=== PATIENT | female | born 1950 | race Caucasian/White ===

== ENCOUNTER 2019-06-14 06:05 | Inpatient (IN) ==
[~2019-06-14 06:05] MED LIST: Aspirin 81 MG TAB.CHEW PO ONE; Dextrose 50 % in Water (Vial) 30 ML, Sodium Bicarbonate 20 MEQ, Lidocaine 1% 5 ML, Insu... TH ONE; Dextrose 50 % in Water (Vial) 30 ML, Sodium Bicarbonate 20 MEQ, Potassium Chloride 15 M... TH ONE; Heparin 15,000 UNIT in 0.9 % Sodium Chloride 500 ML IV ONE; Insulin Human Regular 100 UNIT in 0.9 % Sodium Chloride 100 ML IV PRN; Norepinephrine 4 MG in 0.9 % Sodium Chloride 250 ML IVC PRN
[2019-06-14] MEDS ORDERED: Nitroglycerin 25 MG/250 ML INFUS..BTL IVC ONE (06:13)
[2019-06-14] MEDS ORDERED: NiCARdipine 2.5 MG/10 ML Syringe IVPB ONE (06:13)
[2019-06-14] MEDS ORDERED: *HR* FentaNYL (PF) 1,000 MCG/20 ML VIAL ONE ×2 (06:15→06:25)
[2019-06-14] MEDS ORDERED: *HR* Midazolam HCl 5 MG/5 ML VIAL IVP ONE ×6 (06:15→18:43)
[2019-06-14] MEDS ORDERED: Protamine Sulfate 250 MG/25 ML VIAL IVP ONE ×2 (06:16→06:22)
[2019-06-14] MEDS ORDERED: *HR* Etomidate 20 MG/10 ML AMPUL IVP ONE (06:16)
[2019-06-14] MEDS ORDERED: Tranexamic Acid 1,000 MG/10 ML VIAL ONE ×2 (06:16→09:50)
[2019-06-14] MEDS ORDERED: Famotidine 20 MG/2 ML VIAL ONE (06:16)
[2019-06-14] MEDS ORDERED: *HR* PHENYLEPHRINE 1,000 MCG/10 ML SYRINGE IVP ONE ×3 (06:16→16:42)
[2019-06-14] MEDS ORDERED: Calcium Gluconate 1,000 MG/10 ML VIAL ONE ×3 (06:16→12:26)
[2019-06-14] MEDS ORDERED: *HR* Rocuronium Bromide 50 MG/5 ML VIAL ONE ×4 (06:16→16:42)
[2019-06-14] MEDS ORDERED: EPHEDrine 50 MG/ML VIAL ONE (06:26)
[2019-06-14] MEDS ORDERED: Clindamycin 900 MG/50 ML 900 MG/50 ML IV.SOLN IVPB ONE (06:38)
[2019-06-14] MEDS ORDERED: Albuterol 2.5 MG/3 ML NEBULIZER IH PRN (06:39)
[2019-06-14] MEDS: Ringers Solution, Lactated 1,000 ML IVC SCH ×2 (08:20→22:27)
[2019-06-14 08:47] LABS: ABG Base Excess -1 mEq/L (-2 to 3); ABG Chloride 108 mEq/L (98-107); ABG Glucose 114 mg/dL (60-95); ABG HCO3 25 mEq/L (21-27); ABG Ionized Calcium 1.25 mmol/L (1.15-1.35); ABG Oxygen Saturation 100 % (95-98); ABG PCO2 43 mmHg (35-45); ABG PH 7.37 pH Units (7.32-7.45); ABG PO2 334 mmHg (85-104); ABG TCO2 26 mEq/L (20-26)
[2019-06-14] MEDS ORDERED: Esmolol 100 MG/10 ML VIAL IVP ONE (08:54)
[2019-06-14] MEDS ORDERED: Dextrose 50 % in Water (Vial) 30 ML, Sodium Bicarbonate 20 MEQ, Lidocaine 1% 5 ML, Insu... TH ONE (09:00)
[2019-06-14 09:40] LABS: ABG Base Excess -2 mEq/L (-2 to 3); ABG Chloride 107 mEq/L (98-107); ABG Glucose 144 mg/dL (60-95); ABG HCO3 23 mEq/L (21-27); ABG Ionized Calcium 1.23 mmol/L (1.15-1.35); ABG Oxygen Saturation 100 % (95-98); ABG PCO2 40 mmHg (35-45); ABG PH 7.38 pH Units (7.32-7.45); ABG PO2 186 mmHg (85-104); ABG TCO2 25 mEq/L (20-26)
[2019-06-14 10:17] LABS: ABG Base Excess -2 mEq/L (-2 to 3); ABG Chloride 103 mEq/L (98-107); ABG Glucose 162 mg/dL (60-95); ABG HCO3 23 mEq/L (21-27); ABG Ionized Calcium 0.99 mmol/L (1.15-1.35); ABG Oxygen Saturation 100 % (95-98); ABG PCO2 34 mmHg (35-45); ABG PH 7.43 pH Units (7.32-7.45); ABG PO2 527 mmHg (85-104); ABG TCO2 24 mEq/L (20-26)
[2019-06-14 10:57] LABS: ABG Base Excess 1 mEq/L (-2 to 3); ABG Chloride 102 mEq/L (98-107); ABG Glucose 157 mg/dL (60-95); ABG HCO3 25 mEq/L (21-27); ABG Ionized Calcium 0.99 mmol/L (1.15-1.35); ABG Oxygen Saturation 100 % (95-98); ABG PCO2 37 mmHg (35-45); ABG PH 7.44 pH Units (7.32-7.45); ABG PO2 510 mmHg (85-104); ABG TCO2 26 mEq/L (20-26)
[2019-06-14 11:20] LABS: ABG Base Excess -3 mEq/L (-2 to 3); ABG Chloride 103 mEq/L (98-107); ABG Glucose 111 mg/dL (60-95); ABG HCO3 22 mEq/L (21-27); ABG Ionized Calcium 0.92 mmol/L (1.15-1.35); ABG Oxygen Saturation 100 % (95-98); ABG PCO2 35 mmHg (35-45); ABG PO2 500 mmHg (85-104); ABG TCO2 23 mEq/L (20-26)
[2019-06-14 11:54] LABS: ABG Base Excess -5 mEq/L (-2 to 3); ABG Chloride 104 mEq/L (98-107); ABG Glucose 74 mg/dL (60-95); ABG HCO3 21 mEq/L (21-27); ABG Ionized Calcium 1.42 mmol/L (1.15-1.35); ABG Oxygen Saturation 95 % (95-98); ABG PCO2 42 mmHg (35-45); ABG PO2 83 mmHg (85-104); ABG TCO2 22 mEq/L (20-26)
[2019-06-14] MEDS ORDERED: *HR* EPINEPHrine 1 MG/10 ML SYRINGE ONE ×2 (11:57→12:56)
[2019-06-14] MEDS ORDERED: *HR* Amiodarone 150 MG/3 ML VIAL IVPB ONE ×2 (12:03→14:24)
[2019-06-14] MEDS ORDERED: Lidocaine 2% Syringe 100 MG/5 ML ONE (12:03)
[2019-06-14] MEDS ORDERED: Amiodarone Premix 360 MG/200 ML BAG IVC ONE ×2 (12:03→14:38)
[2019-06-14 12:19] LABS: ABG Base Excess -8 mEq/L (-2 to 3); ABG Chloride 107 mEq/L (98-107); ABG Glucose 72 mg/dL (60-95); ABG HCO3 19 mEq/L (21-27); ABG Ionized Calcium 1.19 mmol/L (1.15-1.35); ABG Oxygen Saturation 98 % (95-98); ABG PCO2 40 mmHg (35-45); ABG PH 7.28 pH Units (7.32-7.45); ABG PO2 114 mmHg (85-104); ABG TCO2 20 mEq/L (20-26)
[2019-06-14] MEDS ORDERED: D5% in Water 250 ML ONE ×2 (12:37→23:10)
[2019-06-14 12:45] LABS: ABG Base Excess -3 mEq/L (-2 to 3); ABG Chloride 106 mEq/L (98-107); ABG Glucose 173 mg/dL (60-95); ABG HCO3 23 mEq/L (21-27); ABG Ionized Calcium 1.21 mmol/L (1.15-1.35); ABG Oxygen Saturation 98 % (95-98); ABG PCO2 45 mmHg (35-45); ABG PH 7.32 pH Units (7.32-7.45); ABG PO2 118 mmHg (85-104); ABG TCO2 24 mEq/L (20-26)
[2019-06-14] MEDS ORDERED: Heparin 1,000 UNITS/500 mL 1,000 ML ONE (12:47)
[2019-06-14] MEDS ORDERED: Isovue-300 50ML VIAL ONE ×3 (12:53→13:27)
[2019-06-14] MEDS ORDERED: *HR* Heparin 5,000 UNIT/ML VIAL ONE ×2 (13:31→14:13)
[2019-06-14 13:44] LABS: ABG Base Excess -5 mEq/L (-2 to 3); ABG Chloride 105 mEq/L (98-107); ABG Glucose 238 mg/dL (60-95); ABG HCO3 21 mEq/L (21-27); ABG Ionized Calcium 1.07 mmol/L (1.15-1.35); ABG Oxygen Saturation 99 % (95-98); ABG PCO2 36 mmHg (35-45); ABG PH 7.36 pH Units (7.32-7.45); ABG PO2 161 mmHg (85-104); ABG TCO2 22 mEq/L (20-26)
[2019-06-14 14:24] LABS: ABG Base Excess -4 mEq/L (-2 to 3); ABG Chloride 104 mEq/L (98-107); ABG Glucose 236 mg/dL (60-95); ABG HCO3 21 mEq/L (21-27); ABG Ionized Calcium 1.14 mmol/L (1.15-1.35); ABG Oxygen Saturation 99 % (95-98); ABG PCO2 39 mmHg (35-45); ABG PH 7.34 pH Units (7.32-7.45); ABG PO2 139 mmHg (85-104); ABG TCO2 22 mEq/L (20-26)
[2019-06-14] MEDS ORDERED: *HR* EPINEPHrine 1 MG/10 ML SYRINGE IVP ONE (14:24)
[2019-06-14] MEDS ORDERED: D5% in Water 250 ML IV BAG IV ONE (14:24)
[2019-06-14] MEDS ORDERED: *HR* Norepinephrine 4 MG/4 ML VIAL IVC ONE (14:24)
[2019-06-14] MEDS ORDERED: Insulin Regular, Human 100 UNIT/ML IV PRN (14:38)
[2019-06-14] MEDS ORDERED: Acetaminophen 325 MG TABLET PO PRN (14:38)
[2019-06-14] MEDS ORDERED: *HR* FentaNYL (PF) 100 MCG/2 ML VIAL IVP PRN (14:38)
[2019-06-14] MEDS ORDERED: Naloxone 0.4 MG/ML INJ IVP PRN (14:38)
[2019-06-14] MEDS ORDERED: *HR* OxyCODONE/APAP 5/325 TABLET PO PRN (14:38)
[2019-06-14] MEDS ORDERED: Ondansetron 4 MG/2 ML VIAL IVP PRN (14:38)
[2019-06-14] MEDS ORDERED: *HR* Promethazine 25 MG/ML VIAL IVP PRN (14:38)
[2019-06-14] MEDS ORDERED: methylPREDNISolone 125 MG/2 ML VIAL ONE (14:46)
[2019-06-14] MEDS: Norepinephrine 4 MG in 0.9 % Sodium Chloride 250 ML IVC SCH ×2 (14:52→20:04)
[2019-06-14] MEDS ORDERED: 0.9 % Sodium Chloride 500 ML ONE ×3 (15:13→15:47)
[2019-06-14] MEDS ORDERED: HEPARIN IV SCH ×4 (15:15→16:45)
[2019-06-14] MEDS ORDERED: WATER IV SCH ×4 (15:15→16:45)
[2019-06-14] MEDS ORDERED: D5 IV SCH ×4 (15:15→16:45)
[2019-06-14 15:18] LABS: ABG Base Excess -7 mEq/L (-2 to 3); ABG HCO3 19 mEq/L (21-27); ABG Oxygen Saturation 99 % (95-98); ABG PCO2 38 mmHg (35-45); ABG PO2 151 mmHg (85-104); ABG TCO2 20 mEq/L (20-26); Blood Gas Modality ASSIST CONTROL; Blood Gas VT 700 cc
[2019-06-14 15:20] LABS: Basophils % 0.2 %; Eosinophils % 0.2 %; Hematocrit 25.6 % (35.3-44.9); Hemoglobin 8.9 g/dL (11.5-15.4); Immature Granulocytes % 0.8 % (0-4); Lymphocytes # 1.6 K/mcL (0.6-4.6); Lymphocytes % 15.1 %; Mean Corpuscular HGB Conc 34.8 g/dL (31.6-35.5); Mean Corpuscular Volume 92.1 fL (83.0-100.0); Mean Platelet Volume 10.3 fL (9.4-12.4); Monocytes # 0.8 K/mcL (0.0-1.3); Monocytes % 7.3 %; Red Blood Count 2.78 M/mcL (3.82-4.97); Red Cell Distribution Width 14.6 % (11.5-14.5); Segmented Neutrophils % 76.4 %
[2019-06-14 15:21] LABS: Platelet Count 53 K/mcL (140-400)
[2019-06-14 15:26] LABS: INR 1.6; Prothrombin Time 17.7 Seconds (9.4-12.1)
[2019-06-14 15:27] LABS: White Blood Count 10.4 K/mcL (4.3-11.1)
[2019-06-14 15:29] LABS: Activated Partial Thrombo Time 38.5 Seconds (26.0-36.0)
[2019-06-14] MEDS ORDERED: Heparin 25,000 UNIT/250 ML D5W 25,000 UNIT/250 ML IV.SOLN IVC SCH (15:30)
[2019-06-14 15:34] LABS: BUN/Creatinine Ratio 14 (6-26); Blood Urea Nitrogen 13 mg/dL (8-23); Calcium 8.1 mg/dL (8.6-10.3); Carbon Dioxide 19 mEq/L (23-29); Chloride 104 mEq/L (98-107); Glucose 381 mg/dL (70-105); Magnesium 2.2 mg/dL (1.6-2.6); Osmolality,Calculated 302 (280-300); Potassium 3.5 mEq/L (3.5-5.1); Sodium 138 mEq/L (136-145); eGFR For African Americans > 60 (> 60); eGFR For Non-African Americans > 60 (> 60)
[2019-06-14] MEDS ORDERED: EPINEPHrine 1 MG/ML VIAL ONE ×2 (15:38→16:43)
[2019-06-14] MEDS ORDERED: 0.9 % Sodium Chloride 250 ML ONE ×2 (15:38→16:14)
[2019-06-14] MEDS: EPINEPHrine 1 MG in D5% in Water 250 ML IVC SCH ×2 (15:40→17:23)
[2019-06-14] MEDS ORDERED: Dexmedetomidine HCl 400 MCG/100 ML MLS IVC SCH (16:30)
[2019-06-14] MEDS ORDERED: *HR* FentaNYL (PF) 250 MCG/5 ML VIAL ONE (16:42)
[2019-06-14] MEDS ORDERED: 0.9 % Sodium Chloride 1,000 ML ONE (16:57)
[2019-06-14] MEDS: Insulin Human Regular 100 UNIT in 0.9 % Sodium Chloride 100 ML IVC SCH ×2 (17:14→23:08)
[2019-06-14] MEDS: Clindamycin 900 MG/50 ML 900 MG/50 ML IV.SOLN IVPB SCH ×2 (17:58→23:08)
[2019-06-14 18:09] LABS: ABG Base Excess -12 mEq/L (-2 to 3); ABG Chloride 105 mEq/L (98-107); ABG Glucose 390 mg/dL (60-95); ABG HCO3 14 mEq/L (21-27); ABG Ionized Calcium 0.98 mmol/L (1.15-1.35); ABG Oxygen Saturation 99 % (95-98); ABG PCO2 33 mmHg (35-45); ABG PH 7.24 pH Units (7.32-7.45); ABG PO2 143 mmHg (85-104); ABG TCO2 15 mEq/L (20-26)
[2019-06-14] MEDS: Chlorhexidine Rinse 15 ML MOUTHWASH MM SCH ×3 (18:36→20:18)
[2019-06-14] MEDS: Amiodarone Premix 360 MG/200 ML BAG IVC SCH (18:36)
[2019-06-14] MEDS: 0.9 % Sodium Chloride 1,000 ML IVC SCH ×2 (18:36→20:34)
[2019-06-14] MEDS: niCARdipine 20 MG/200 ML MLS IVC SCH ×5 (18:37→23:09)
[2019-06-14] MEDS: Milrinone Premix 20 MG/100 ML 20 MG/100 ML BAG IVC SCH (18:38)
[2019-06-14 19:00] LABS: ABG Base Excess -10 mEq/L (-2 to 3); ABG Chloride 104 mEq/L (98-107); ABG Glucose 367 mg/dL (60-95); ABG HCO3 16 mEq/L (21-27); ABG Ionized Calcium 1.17 mmol/L (1.15-1.35); ABG Oxygen Saturation 98 % (95-98); ABG PCO2 34 mmHg (35-45); ABG PH 7.29 pH Units (7.32-7.45); ABG PO2 125 mmHg (85-104); ABG TCO2 17 mEq/L (20-26)
[2019-06-14 19:44] LABS: ABG Base Excess -6 mEq/L (-2 to 3); ABG HCO3 20 mEq/L (21-27); ABG Oxygen Saturation 97 % (95-98); ABG PCO2 38 mmHg (35-45); ABG PH 7.33 pH Units (7.32-7.45); ABG PO2 94 mmHg (85-104); ABG TCO2 21 mEq/L (20-26); Blood Gas VT 700 cc
[2019-06-14 19:49] LABS: Hematocrit 28.2 % (35.3-44.9); Immature Platelets 3.5 % (1.1-6.1); Mean Corpuscular HGB Conc 35.5 g/dL (31.6-35.5); Mean Corpuscular Hemoglobin 32.3 pg (28.0-33.3); Red Cell Distribution Width 13.9 % (11.5-14.5); White Blood Count 6.5 K/mcL (4.3-11.1)
[2019-06-14 19:54] LABS: Platelet Count 28 K/mcL (140-400)
[2019-06-14 19:55] LABS: INR 2.1; Prothrombin Time 24.4 Seconds (9.4-12.1)
[2019-06-14 20:01] LABS: Activated Partial Thrombo Time 74.7 Seconds (26.0-36.0)
[2019-06-14] MEDS: EPINEPHrine 5 MG in D5% in Water 250 ML IVC SCH (20:01)
[2019-06-14 20:03] LABS: BUN/Creatinine Ratio 14 (6-26); Blood Urea Nitrogen 13 mg/dL (8-23); Calcium 8.1 mg/dL (8.6-10.3); Carbon Dioxide 21 mEq/L (23-29); Chloride 106 mEq/L (98-107); Glucose 351 mg/dL (70-105); Osmolality,Calculated 314 (280-300); Potassium 3.1 mEq/L (3.5-5.1); Sodium 145 mEq/L (136-145); eGFR For African Americans > 60 (> 60); eGFR For Non-African Americans > 60 (> 60)
[2019-06-14 20:09] LABS: Lymphocytes # 0.3 K/mcL (0.6-4.6); Neutrophils # 6.2 K/mcL (1.6-8.9); Platelet Estimate Marked Decrease (Normal)
[2019-06-14 22:39] LABS: Basophils % 0.2 %; Eosinophils % 0.2 %; Hematocrit 25.9 % (35.3-44.9); Hemoglobin 9.1 g/dL (11.5-15.4); Immature Granulocytes % 1.1 % (0-4); Lymphocytes # 0.6 K/mcL (0.6-4.6); Lymphocytes % 8.8 %; Mean Corpuscular HGB Conc 35.1 g/dL (31.6-35.5); Mean Corpuscular Volume 91.2 fL (83.0-100.0); Mean Platelet Volume 9.7 fL (9.4-12.4); Monocytes # 0.5 K/mcL (0.0-1.3); Monocytes % 7.7 %; Neutrophils # 5.4 K/mcL (1.6-8.9); Platelet Count 100 K/mcL (140-400); Red Blood Count 2.84 M/mcL (3.82-4.97); Red Cell Distribution Width 14.1 % (11.5-14.5); White Blood Count 6.6 K/mcL (4.3-11.1)
[2019-06-14 22:56] LABS: Platelet Estimate Slight Decrease (Normal)
[2019-06-14 23:33] LABS: ABG Base Excess -10 mEq/L (-2 to 3); ABG HCO3 17 mEq/L (21-27); ABG Oxygen Saturation 95 % (95-98); ABG PCO2 40 mmHg (35-45); ABG PH 7.23 pH Units (7.32-7.45); ABG PO2 88 mmHg (85-104); ABG TCO2 18 mEq/L (20-26); Blood Gas VT 700 cc
[2019-06-14] MEDS ORDERED: Sodium Bicarbonate 50 MEQ/50 ML VIAL IVP ONE (23:40)
[2019-06-15] MEDS: Norepinephrine 4 MG in 0.9 % Sodium Chloride 250 ML IVC SCH ×2 (00:51→03:05)
[2019-06-15] MEDS: Amiodarone Premix 360 MG/200 ML BAG IVC SCH (01:02)
[2019-06-15 01:03] LABS: ABG Base Excess -10 mEq/L (-2 to 3); ABG Chloride 110 mEq/L (98-107); ABG Glucose 103 mg/dL (60-95); ABG HCO3 18 mEq/L (21-27); ABG Ionized Calcium 1.21 mmol/L (1.15-1.35); ABG Oxygen Saturation 97 % (95-98); ABG PCO2 50 mmHg (35-45); ABG PH 7.15 pH Units (7.32-7.45); ABG PO2 113 mmHg (85-104); ABG TCO2 19 mEq/L (20-26)
[2019-06-15] MEDS ORDERED: Sodium Bicarbonate 50 MEQ/50 ML VIAL ONE (01:12)
[2019-06-15 01:16] LABS: Hematocrit 23.8 % (35.3-44.9); Nucleated Red Blood Cells 0.7 /100 WBC (0)
[2019-06-15 01:18] LABS: Hemoglobin 8.1 g/dL (11.5-15.4); Immature Platelets 4.5 % (1.1-6.1); Mean Corpuscular Hemoglobin 31.9 pg (28.0-33.3); Mean Corpuscular Volume 93.7 fL (83.0-100.0); Mean Platelet Volume 10.8 fL (9.4-12.4); Red Blood Count 2.54 M/mcL (3.82-4.97); Red Cell Distribution Width 14.3 % (11.5-14.5); White Blood Count 5.8 K/mcL (4.3-11.1)
[2019-06-15 01:22] LABS: Platelet Count 59 K/mcL (140-400)
[2019-06-15] MEDS ORDERED: Sodium Bicarbonate 50 MEQ/50 ML VIAL IVP ONE (01:37)
[2019-06-15 01:41] LABS: Calcium 8.5 mg/dL (8.6-10.3); Potassium 4.6 mEq/L (3.5-5.1)
[2019-06-15 01:42] LABS: Large Platelets Present (Not Present); Lymphocytes # 0.4 K/mcL (0.6-4.6); Monocytes # 0.2 K/mcL (0.0-1.3); Neutrophils # 5.2 K/mcL (1.6-8.9); Platelet Estimate Decreased (Normal)
[2019-06-15 01:43] LABS: Smudge Cells Present (Not Present)
[2019-06-15] MEDS: 0.9 % Sodium Chloride 1,000 ML IVC SCH ×2 (02:16→09:14)
[2019-06-15 03:36] LABS: ABG Base Excess -11 mEq/L (-2 to 3); ABG HCO3 17 mEq/L (21-27); ABG Oxygen Saturation 96 % (95-98); ABG PCO2 44 mmHg (35-45); ABG PH 7.19 pH Units (7.32-7.45); ABG PO2 104 mmHg (85-104); ABG TCO2 18 mEq/L (20-26); Blood Gas VT 800 cc
[2019-06-15] MEDS: *HR* Dextrose 50 % in Water (Syg) 50 ML SYRINGE IVP PRN ×2 (04:11→06:12)
[2019-06-15] MEDS: EPINEPHrine 5 MG in D5% in Water 250 ML IVC SCH (04:23)
[2019-06-15] MEDS: Norepinephrine 8 MG in 0.9 % Sodium Chloride 250 ML IVC SCH ×2 (05:28→09:52)
[2019-06-15] MEDS: Milrinone Premix 20 MG/100 ML 20 MG/100 ML BAG IVC SCH (05:28)
[2019-06-15 05:44] LABS: Hemoglobin 9.6 g/dL (11.5-15.4)
[2019-06-15 05:45] LABS: Hematocrit 28.2 % (35.3-44.9); Immature Platelets 7.6 % (1.1-6.1); Mean Corpuscular Hemoglobin 31.4 pg (28.0-33.3); Mean Corpuscular Volume 92.2 fL (83.0-100.0); Mean Platelet Volume 11.2 fL (9.4-12.4); Red Blood Count 3.06 M/mcL (3.82-4.97); Red Cell Distribution Width 15.5 % (11.5-14.5); White Blood Count 13.7 K/mcL (4.3-11.1)
[2019-06-15 05:48] LABS: Platelet Count 47 K/mcL (140-400)
[2019-06-15 06:01] LABS: INR 3.5; Prothrombin Time 39.4 Seconds (9.4-12.1)
[2019-06-15 06:02] LABS: Calcium 7.9 mg/dL (8.6-10.3)
[2019-06-15 06:09] LABS: Eosinophils # 0.3 K/mcL (0.0-0.6); Lymphocytes # 1.1 K/mcL (0.6-4.6); Monocytes # 1.1 K/mcL (0.0-1.3); Platelet Estimate Decreased (Normal); Polychromasia 1+ (Not Present)
[2019-06-15] MEDS ORDERED: 0.9 % Sodium Chloride 500 ML ONE (06:19)
[2019-06-15 08:30] LABS: ABG Base Excess -15 mEq/L (-2 to 3); ABG HCO3 13 mEq/L (21-27); ABG Oxygen Saturation 89 % (95-98); ABG PCO2 43 mmHg (35-45); ABG PO2 75 mmHg (85-104); ABG TCO2 15 mEq/L (20-26); Blood Gas Modality ASSIST CONTROL; Blood Gas VT 800 cc
[2019-06-15] MEDS ORDERED: Aspirin Enteric Coated 81 MG Tablet PO SCH (09:00)
[2019-06-15] MEDS ORDERED: Pantoprazole 40 MG VIAL IVP SCH (09:00)
[2019-06-15] MEDS: Chlorhexidine Rinse 15 ML MOUTHWASH MM SCH (09:13)
[2019-06-15 10:32] VITALS: BP 42/39
[2019-06-15] MEDS ORDERED: D5% in Water 250 ML ONE (10:37)
[2019-06-15] MEDS ORDERED: Morphine Sulfate 2 MG/ML SYRINGE IVP PRN (10:52)
[2019-06-15] MEDS ORDERED: *HR* Phenylephrine 10 MG/ML VIAL IVC ONE (14:24)
[2019-06-15] MEDS ORDERED: *HR* Magnesium Sulfate 2 GM/50 ML PIGGYBACK IVPB ONE (14:24)
[2019-06-15] MEDS ORDERED: Tranexamic Acid 1,000 MG/10 ML VIAL IVP ONE (14:24)
[2019-06-15] MEDS ORDERED: Mannitol 25% vial 12.5 GM/50 ML VIAL IVP ONE (14:24)
[2019-06-15] MEDS ORDERED: Heparin 1,000 UNITS/500 mL IV.SOLN IVC ONE ×2 (14:24)
[2019-06-15] MEDS ORDERED: Lidocaine 2% Syringe 100 MG/5 ML IV ONE (14:24)
[2019-06-15] MEDS ORDERED: *HR* Heparin 10,000 UNIT/10 ML VIAL IV ONE ×2 (14:24)
[2019-06-15] MEDS ORDERED: Albumin Human 25% 25 GM/100 ML IV.SOLN IV ONE (14:24)
== END 2019-06-15 14:25 | disposition expired | DRG 215 ==
LOC: SAMDAY 06:05 → ICNU 11:56
PROVIDERS: ADMIT Thoracic Surgery (Cardiothoracic Vascular Surgery); ATTEND Thoracic Surgery (Cardiothoracic Vascular Surgery)